=== PATIENT | male | born 1995 | race Caucasian/White ===

== ENCOUNTER 2017-01-21 01:01 | Inpatient (IN) | payer BC, OTHER ==
[~2017-01-21] VITALS: Ht 188 cm; Wt 65.8 kg
[2017-01-21] MEDS ORDERED: DICYCLOMINE HCL 20 MG TABLET PO PRN (01:15)
[2017-01-21] MEDS ORDERED: MIRALAX 17 GM POWD.PACK PO PRN (01:15)
[2017-01-21] MEDS ORDERED: MAG HYDROX/AL HYDROX/SIMETH 30 ML LIQUID UDC PO PRN (01:15)
[2017-01-21] MEDS ORDERED: ONDANSETRON 4 MG/2 ML VIAL IM PRN (01:15)
[2017-01-21] MEDS ORDERED: LOPERAMIDE HCL 2 MG CAPSULE PO PRN ×2 (01:15)
[2017-01-21] MEDS ORDERED: diphenhydrAMINE 50 MG CAPSULE PO PRN (01:15)
[2017-01-21] MEDS ORDERED: ACETAMINOPHEN 325 MG TABLET PO PRN (01:15)
[2017-01-21] MEDS ORDERED: ONDANSETRON ODT 4 MG TAB.RAPDIS SL PRN (01:15)
[2017-01-21] MEDS ORDERED: LORAZEPAM 2 MG/1 ML VIAL IM PRN (01:15)
[2017-01-21] MEDS ORDERED: LORAZEPAM 1 MG TABLET PO PRN ×2 (01:15)
--- NOTE | 2017-01-21 01:40 | NUR ---
Pre admission note Pt seen in intake office. Pt noted with mild intoxication upon admission but in stable condition. V/S WNL. Policies on medication disposal explained to and understood by patient. No s/s of distress noted at this time. Respirations even and unlabored. Will continue to monitor. Will admit to unit.
[2017-01-21 01:54] VITALS: BP 111/60
--- NOTE | 2017-01-21 01:55 | NUR ---
Admission note Pt is a 21 yo male, A+Ox4, presenting to [facility] for Benzo/Meth/Cocaine/Marijuana dependence. Pt has NKA, is on Full code status, and on Regular diet. Pt is 6'2" in height and 145 LBS in weight. Pt has medical HX of Anxiety, Insomnia, Neuropathy, Spinal cord injury, and intermittent incontinence. Pt has family HX of HTN for Father. Pt has no primary care provider. Pt has been taking Xanax PO for 1 year, has reached a level of 2mg/daily, and last dose was 2mg on 01-18-17. Pt has been using Methamphetamine IV for 5 months (3 weeks currently), has reached a level of 0.5gm/daily, and last dose was 0.1gm on 01-18-17. Pt has been using Cocaine/Crack Cocaine intranasal/inhalation for 5 years (3 weeks currently), has reached a level of "Very little"/daily, and last dose was "Very little" on 01-17-17. Pt has been smoking Marijuana for 15 years (3 weeks currently), has reached a level of 0.25gm/daily, and last dose was "1 hit" on 01-20-17. Pt has been taking home medications as follows: Vivitrol Q month- last taken around 12-22-16, Xanax 1mg BID-last taken on 01-18-17, gabapentin 800mg TID- last taken 01-18-17, Ibuprofen 800mg TID- last taken 01-18-17, Ditropan 5mg BID- Last taken 01-18-17, and Seroquel 50mg QHS- last taken 01-18-17. Pt has HX of previous detox/rehab for 7 days @ [facility] in [place], [place] in December 2016. This was the patients last time sober. Pt has been a cigarette smoker for 5 years and has reached a rate of 10/daily. Pt appears mildly intoxicated upon admission but in stable condition. V/S WNL. No s/s of distress noted at this time. Respirations even and unlabored. Will continue to monitor.
[2017-01-21] MEDS ORDERED: LORAZEPAM 1 MG TABLET PO ONE (02:15)
[2017-01-21] MEDS ORDERED: GABA800T2 PO (03:59)
[2017-01-21] MEDS ORDERED: ALPR1TAB7 PO (03:59)
[2017-01-21] MEDS ORDERED: IBUP-1957 PO (03:59)
[2017-01-21] MEDS ORDERED: NALT380S2 IM (03:59)
[2017-01-21] MEDS ORDERED: QUET50TA PO (03:59)
[2017-01-21] MEDS ORDERED: OXYB5TAB29 PO (03:59)
[2017-01-21 04:15] VITALS: BP 117/68
--- NOTE | 2017-01-21 07:00 | NUR ---
End of shift note Pt is a 21 yo male, A+Ox4, presenting to [facility] for Benzo/Meth/Cocaine/Marijuana dependence. Pt has NKA, is on Full code status, and on Regular diet. Pt is on Fall and Seizure precautions. Pt has HX of Anxiety, Insomnia, Neuropathy, Spinal cord injury, and intermittent incontinence. Pt is on 5 day Ativan taper, to start today. Pt slept for a total of 4 HRS. Last CIWA: 3 @0400. No s/s of distress noted at this time. Respirations even and unlabored. Will endorse to day shift nurse.
[2017-01-21 07:26] LABS: ALANINE AMINOTRANSFERASE 22 U/L (16-63); ALKALINE PHOSPHATASE 89 U/L (50-136); ASPARTATE AMINOTRANSFERASE 16 U/L (15-37); BILIRUBIN,TOTAL 0.3 mg/dL (0.2-1.0); CARBON DIOXIDE 29 mmol/L (21-32); CHLORIDE 104 mmol/L (98-107); GLUCOSE 90 mg/dL (74-106); MAGNESIUM 2.2 mg/dL (1.8-2.4); POTASSIUM 4.5 mmol/L (3.5-5.1); TOTAL PROTEIN, SERUM 7.8 g/dL (6.4-8.2); UREA NITROGEN, BLOOD 13 mg/dL (7-18)
[2017-01-21 07:36] LABS: ETHANOL < 3 MG/DL (0-0)
[2017-01-21 07:47] LABS: EOSINOPHILS # (AUTO) 0.5 K/uL (0.0-0.7); MEAN CORPUSCULAR HGB CONC 34 g/dL (32.5-36.3); MONOCYTES # (AUTO) 0.8 K/uL (2.0-10.0)
[2017-01-21 08:00] VITALS: BP 99/50
[2017-01-21 08:00] LABS: BASOPHILS # (AUTO) 0.1 K/uL (0.0-8.0); EOSINOPHILS % (AUTO) 7.1 % (0.0-7.0); HEMATOCRIT 41.1 % (36.7-47.1); HEMOGLOBIN 14.2 g/dL (12.5-16.3); LYMPHOCYTES # (AUTO) 2.4 K/uL (20.0-40.0); MEAN CORPUSCULAR VOLUME 87.2 fL (73.0-96.2); MONOCYTES % (AUTO) 10.4 % (0.0-11.0); NEUTROPHILS # (AUTO) 3.9 K/uL (1.8-8.9); NEUTROPHILS % (AUTO) 50.5 % (38.5-71.5); RED BLOOD CELL COUNT(AUTO) 4.71 MIL/uL (4.06-5.63); WHITE BLOOD COUNT (AUTO) 7.7 K/uL (3.6-10.2)
--- NOTE | 2017-01-21 08:00 | NUR ---
START OF SHIFT NOTE Pt is a 21 yo male, A+Ox4, presenting to [facility] for Benzo/Meth/Cocaine/Marijuana dependence. Pt has NKA, is on Full code status, and on Regular diet. Pt is on Fall and Seizure precautions. Pt has HX of Anxiety, Insomnia, Neuropathy, Spinal cord injury, and intermittent incontinence. Pt is on 5 day Ativan taper, to start today. Received report from night RN. Pt slept 4 hours. Last CIWA 3 at 0400. Urine sample for UDS not yet provided by patient. 0800 nursing rounds done. Pt sleeping but alert to verbal. Given urine sample container and requested sample. Bed in low position and locked, side rails up x 2 and padded, call ivory within reach. Will continue to monitor.
[2017-01-21 08:05] LABS: PLATELET COUNT (AUTO) 169 K/uL (152-348)
[2017-01-21] MEDS: THIAMINE HCL 100 MG TABLET PO SCH (09:25)
[2017-01-21] MEDS: MULTIVITAMINS,THERAPEUTIC TABLET PO SCH (09:25)
[2017-01-21] MEDS: GABAPENTIN 400 MG CAPSULE PO SCH ×3 (09:25→21:00)
[2017-01-21] MEDS: FOLIC ACID 1 MG TABLET PO SCH (09:25)
[2017-01-21] MEDS: LORAZEPAM 1 MG TABLET PO SCH ×4 (09:25→21:00)
[2017-01-21] MEDS: DULOXETINE 60 MG CAPSULE.DR PO SCH (09:33)
[2017-01-21] MEDS: OXYBUTYNIN CHLORIDE 5 MG TABLET PO SCH ×2 (09:33→21:00)
--- NOTE | 2017-01-21 09:33 | NUR ---
Pt reports pain in legs due to history spinal injury. Given Tylenol PRN. Will reassess.
--- NOTE | 2017-01-21 10:33 | NUR ---
PRN MEDICATION REASSESSMENT RN assessing for effectiveness for PRN tylenol at 0933, however, pt asleep at this time. Will continue to monitor for pain and medicate per orders.
[2017-01-21 11:31] LABS: *AMPHETAMINE, URINE NEGATIVE (NEGATIVE); *BARBITURATE, URINE NEGATIVE (NEGATIVE); *CANNABINOID, URINE NEGATIVE (NEGATIVE); *COCCAINE, URINE NEGATIVE (NEGATIVE); *OPIATE, URINE NEGATIVE (NEGATIVE); *PHENCYCLIDINE SCREEN,URINE NEGATIVE (NEGATIVE)
[2017-01-21 17:00] VITALS: BP 122/56
--- NOTE | 2017-01-21 17:00 | NUR ---
ATIVAN HELD 1700 dose Ativan held due to sedation, pt can open eyes to verbal, answers questions, but eyes close and falls back asleep if not stimulated. CIWA1. Dr. Yee notified dose held.
--- NOTE | 2017-01-21 19:43 | NUR ---
END OF SHIFT NOTE Pt is a 21 yo male, A+Ox4, presenting to [facility] for Benzo/Meth/Cocaine/Marijuana dependence. Pt has NKA, is on Full code status, and on Regular diet. Pt is on Fall and Seizure precautions. Pt has HX of Anxiety, Insomnia, Neuropathy, Spinal cord injury, and intermittent incontinence. Pt is on 5 day Ativan taper, to start today. Urine sample for UDS provided by patient. CIWA 8 at 0800. CIWA 4 at 1200. CIWA 1 at 1700. 1700 dose atvian held due to drowsiness/sedation. Dr. Yee notified. Pt able to respond to verbal but then quickly falls back asleep. Good appetite, ate 75 percent of breakfast, 100 percent of lunch and dinner. Fluid intake 1000 ml. Void x 4, no stool. Vital signs WNL. Report given to night RN. Bed in low position and locked, side rails up x 2 and padded, call ivory within reach. Will continue to monitor.
--- NOTE | 2017-01-21 19:44 | NUR ---
Start of shift note Received report from day shift nurse. Pt is a 21 yo male, A+Ox4, presenting to [facility] for Benzo/Meth/Cocaine/Marijuana dependence. Pt has NKA, is on Full code status, and on Regular diet. Pt is on Fall and Seizure precautions. Pt has HX of Anxiety, Insomnia, Neuropathy, Spinal cord injury, and intermittent incontinence. Pt is on 5 day Ativan taper, tolerated well. No s/s of distress noted at this time. Respirations even and unlabored. Will continue to monitor.
[2017-01-21 20:11] VITALS: BP 103/55
[2017-01-21] MEDS: QUETIAPINE FUMARATE 25 MG TABLET PO SCH (21:00)
[2017-01-22 00:15] VITALS: BP 119/69
[2017-01-22 04:29] VITALS: BP 117/68
--- NOTE | 2017-01-22 06:52 | NUR ---
End of shift note Pt is a 21 yo male, A+Ox4, presenting to [facility] for Benzo/Meth/Cocaine/Marijuana dependence. Pt has NKA, is on Full code status, and on Regular diet. Pt is on Fall and Seizure precautions. Pt has HX of Anxiety, Insomnia, Neuropathy, Spinal cord injury, and intermittent incontinence. Pt is on 5 day Ativan taper, tolerated well. Pt slept for a total of 11 HRS. Last CIWA: 1 @0400. No s/s of distress noted at this time. Respirations even and unlabored. Will endorse to day shift nurse.
[2017-01-22 08:00] VITALS: BP 118/79
--- NOTE | 2017-01-22 08:00 | NUR ---
START OF SHIFT NOTE Pt is a 21 yo male, A+Ox4, presenting to [facility] for Benzo/Meth/Cocaine/Marijuana dependence. Pt has NKA, is on Full code status, and on Regular diet. Pt is on Fall and Seizure precautions. Pt has HX of Anxiety, Insomnia, Neuropathy, Spinal cord injury, and intermittent incontinence. Received report from night RN. Pt slept 11 hours. Last CIWA 1 at 0400. 0800 nursing rounds done. Pt alert and oriented. No requests at this time. Bed in low position and locked, side rails up x 2 and padded, call ivory within reach. Will continue to monitor.
[2017-01-22 08:06] LABS: HEPATITIS B SURFACE AG Negative (Negative)
[2017-01-22] MEDS ORDERED: TUBERCULIN,PURIF.PROT.DERIV. 5 TU/0.1 ML TEST ID ONE (09:00)
[2017-01-22] MEDS ORDERED: LORAZEPAM 1 MG TABLET PO SCH (09:00)
[2017-01-22] MEDS: FOLIC ACID 1 MG TABLET PO SCH (09:52)
[2017-01-22] MEDS: THIAMINE HCL 100 MG TABLET PO SCH (09:52)
[2017-01-22] MEDS: DULOXETINE 60 MG CAPSULE.DR PO SCH (09:52)
[2017-01-22] MEDS: MULTIVITAMINS,THERAPEUTIC TABLET PO SCH (09:53)
[2017-01-22] MEDS: GABAPENTIN 400 MG CAPSULE PO SCH ×3 (09:53→22:01)
[2017-01-22] MEDS: OXYBUTYNIN CHLORIDE 5 MG TABLET PO SCH ×2 (10:00→22:01)
[2017-01-22] MEDS: CLONIDINE HCL 0.1 MG TABLET PO PRN (11:59)
[2017-01-22] MEDS: IBUPROFEN 800 MG TABLET PO PRN (11:59)
[2017-01-22 12:00] VITALS: BP 125/73
--- NOTE | 2017-01-22 12:00 | NUR ---
PRN MEDICATION ADMINISTRATION Pt complaint of nausea, stomach cramps, anxiety, back pain. Given PRN Zofran SL, Bentyl, Clonidine, Motrin. Will reassess.
--- NOTE | 2017-01-22 12:30 | NUR ---
PRN MEDICATION REASSESSMENT Pt reports no further nausea after Zofran SL.
--- NOTE | 2017-01-22 13:00 | NUR ---
PRN MEDICATION REASSESSMENT Reassessment after Bentyl, clonidine and motrin given at 1159. Pt reports resolution of stomach cramps, anxiety is decreased, denies pain at this time.
[2017-01-22] MEDS: LORAZEPAM 1 MG TABLET PO SCH ×2 (15:52→22:00)
[2017-01-22 17:00] VITALS: BP 104/56
--- NOTE | 2017-01-22 19:00 | NUR ---
END OF SHIFT NOTE Pt is a 21 yo male, A+Ox4, presenting to [facility] for Benzo/Meth/Cocaine/Marijuana dependence. Pt has NKA, is on Full code status, and on Regular diet. Pt is on Fall and Seizure precautions. Pt has HX of Anxiety, Insomnia, Neuropathy, Spinal cord injury, and intermittent incontinence. At 1200 received PRN Zofran SL, Bentyl, Clonidine, Motrin for mild nausea, stomach cramps, anxiety, body aches. At 1300 symptoms resolved/decreased. Eating 50-100 percent of meals. Intake 1675 ml, void x 3. Report given to night RN. Bed in low position and locked, side rails up x 2 and padded, call ivory within reach.
[2017-01-22 20:00] VITALS: BP 95/69
--- NOTE | 2017-01-22 20:00 | NUR ---
START OF SHIFT NOTE RECEIVED REPORT FROM DAY SHIFT NURSE. PATIENT IS A 21 YEAR OLD MALE ADMITTED FOR BENZO DEPENDENCE. PATIENT IS A 21 YEAR OLD MALE ADMITTED FOR BENZO/METH/COCAINE AND MARIJUANA DEPENDENCE. PATIENT IS ON 5 DAY ATIVAN TAPER. PATIENT REPORTS PMH OF ANXIETY, INSOMNIA, NEUROPATHY, SPINAL CORD INJURY (2016), BLADDER CONTROL ISSUES AND INTERMITTENT INCONTINENCE. PATIENT IS ON FALL PRECAUTION.PATIENT WAS GIVEN PRN ZOFRAN, BENTYL AND MOTRIN. LAST CIWA 4. RECEIVED PATIENT IN HIS ROOM, RESTING. PATIENT REPORTS ANXIETY, NO N/V, SWEATING, GENERALIZED BODY ACHES 4/10, NOTED IRRITABLE AND AGITATED. PATIENT STATES HE WANTS TO GO BACK TO SLEEP. ON FALL PRECAUTION. SAFETY MEASURES IN PLACE. CALL LIGHT IN REACH. WILL CONTINUE TO MONITOR.
[2017-01-22] MEDS: QUETIAPINE FUMARATE 25 MG TABLET PO SCH (22:01)
[2017-01-22] MEDS: TAMSULOSIN HCL 0.4 MG CAP.SR.24H PO SCH (22:01)
--- NOTE | 2017-01-23 | NUR ---
CIWA DEFERRED PATIENT SLEEPING. CIWA DEFERRED. VS REFUSED. RESPIRATION EVEN AND UNLABORED. SAFETY MEASURES IN PLACE. CALL LIGHT IN REACH. WILL CONTINUE TO MONITOR
--- NOTE | 2017-01-23 04:00 | NUR ---
CIWA DEFERRED PATIENT SLEEPING. CIWA DEFERRED. VS REFUSED. RESPIRATION EVEN AND UNLABORED. SAFETY MEASURES IN PLACE. CALL LIGHT IN REACH. WILL CONTINUE TO MONITOR
--- NOTE | 2017-01-23 07:19 | NUR ---
END OF SHIFT NOTE PATIENT IS A 21 YEAR OLD MALE ADMITTED FOR BENZO/METH/COCAINE AND MARIJUANA DEPENDENCE. PATIENT IS ON 5 DAY ATIVAN TAPER, TOLERATED WELL AND NO ADVERSE REACTION. PATIENT IN HIS ROOM MOST OF THE SHIFT. PATIENT DID NOT REQUIRE ANY PRN MEDICATION. PATIENT REPORTED ANXIETY, NO N/V, SWEATING, GENERALIZED BODY ACHES 4/10, NOTED IRRITABLE AND AGITATED BEGINNING OF THE SHIFT. PATIENT REFUSED TO HAVE PAIN MEDICATION FOR PAIN /10. RELAXATION TECHNIQUE PROVIDED. ON FALL PRECAUTION. SAFETY MEASURES IN PLACE. CALL LIGHT IN REACH. WILL CONTINUE TO MONITOR. SLEPT 11 HOURS. NO FLUID INTAKE . VOIDED X 0. NO BM. LAST CIWA 7.
[2017-01-23 08:00] VITALS: BP_SYST 108; BP_SYST 122; BP_DIAS 40; BP_DIAS 67
--- NOTE | 2017-01-23 08:00 | NUR ---
START OF SHIFT NOTE Pt is a 21 yo male, A+Ox4, presenting to [facility] for Benzo/Meth/Cocaine/Marijuana dependence. Pt has NKA, is on Full code status, and on Regular diet. Pt is on Fall and Seizure precautions. Pt has HX of Anxiety, Insomnia, Neuropathy, Spinal cord injury, and intermittent incontinence. Received report from night RN. Pt slept 11 hours. Last CIWA 7 at 8 pm. No PRN medications given. 0800 nursing rounds done. Pt alert and oriented. No requests at this time. Bed in low position and locked, side rails up x 2 and padded, call ivory within reach. Will continue to monitor.
[2017-01-23] MEDS: FOLIC ACID 1 MG TABLET PO SCH (09:02)
[2017-01-23] MEDS: GABAPENTIN 400 MG CAPSULE PO SCH ×3 (09:02→21:53)
[2017-01-23] MEDS: MULTIVITAMINS,THERAPEUTIC TABLET PO SCH (09:02)
[2017-01-23] MEDS: THIAMINE HCL 100 MG TABLET PO SCH (09:02)
[2017-01-23] MEDS: DULOXETINE 60 MG CAPSULE.DR PO SCH (09:02)
[2017-01-23] MEDS: LORAZEPAM 1 MG TABLET PO SCH ×4 (09:05→21:52)
[2017-01-23] MEDS: OXYBUTYNIN CHLORIDE 5 MG TABLET PO SCH ×2 (09:08→21:53)
[2017-01-23] MEDS: CLONIDINE HCL 0.1 MG TABLET PO PRN (09:12)
--- NOTE | 2017-01-23 09:12 | NUR ---
PRN MEDICATION ADMINISTRATION Pt reporting anxiety. Given Clonidine PRN. Will reassess.
--- NOTE | 2017-01-23 10:12 | NUR ---
PRN MEDICATION REASSESSMENT Pt reports decrease in anxiety after receiving clonidine.
[2017-01-23] MEDS ORDERED: LORAZEPAM 1 MG TABLET PO ONE (11:30)
[2017-01-23 12:00] VITALS: BP 108/40
[2017-01-23 17:00] VITALS: BP 111/60
--- NOTE | 2017-01-23 19:09 | NUR ---
END OF SHIFT NOTE Pt is a 21 yo male, A+Ox4, presenting to [facility] for Benzo/Meth/Cocaine/Marijuana dependence. Pt has NKA, is on Full code status, and on Regular diet. Pt is on Fall and Seizure precautions. Pt has HX of Anxiety, Insomnia, Neuropathy, Spinal cord injury, and intermittent incontinence. Pt received clonidine for anxiety at 0912. At 1012 pt reports good decrease in anxiety effect. Tolerating Ativan taper with CIWA scores of 7 at 0800, 6 at 1200, and 7 at 1700. Consuming 100 percent of meals. Fluid intake 2513 ml. Void x 4. Stool x 0. BP 108/[address] Yee notified. No interventions ordered. notified Pt reports when he has a low blood pressure due to his spinal injury he increases his fluid and salt intake. stated that would be OK. Pt increased fluid intake and salt intake Next BP 111/60 at 1700. Report given to night RN. Bed in low position and locked, side rails up x 2 and padded, call ivory within reach.
[2017-01-23 20:00] VITALS: BP 107/59
--- NOTE | 2017-01-23 20:00 | NUR ---
CIWA deferred CIWA deferred due to the px is sleeping, to assess if the px is awake per doctor's order. Respirations are even and unlabored. We'll continue to monitor.
[2017-01-23] MEDS: TAMSULOSIN HCL 0.4 MG CAP.SR.24H PO SCH (21:53)
[2017-01-23] MEDS: QUETIAPINE FUMARATE 25 MG TABLET PO SCH (21:53)
--- NOTE | 2017-01-23 21:53 | NUR ---
PRN Miralax Px woke up around 2129, assessment done. CIWA 7. Px appears very withdrawn, depressed, and anxious. Px requested for medicine for his constipation for 3 days as verbalized. Miralax 17 G powder, mixed to cup of water given PO as PRN med. We'll continue to monitor.
--- NOTE | 2017-01-24 | NUR ---
VS Refused Px refused VS taking even he is awake. Respirations are even and unlabored. CIWA 7. We'll continue to monitor.
--- NOTE | 2017-01-24 01:02 | NUR ---
PRN MOTRIN 800 MG REASSESSMENT Pt reports improvement in pain 4/10 in extremities. Safety measures in place. Call light within reach. Will continue to monitor.
--- NOTE | 2017-01-24 04:00 | NUR ---
VS Refused Px refused VS taking even he is awake. Respirations are even and unlabored. CIWA 7. We'll continue to monitor.
--- NOTE | 2017-01-24 07:10 | NUR ---
Start of Shift Notes Received a 21 y/o male, admitted 01/21/2017 for Benzo/Meth/Cocaine/Marijuana dependence. A&Ox4. Px has NKA, is on Full code status, and on Regular diet. Px is on Fall and Seizure precautions. Px has HX of Anxiety, Insomnia, Neuropathy, Spinal cord injury, and intermittent incontinence. During the rounds at 2000, px is asleep, VS is WNL. Respirations are and unlabored. Bed in low position and locked, side rails up x 2 and padded, call light within reach. We'll continue to monitor.
--- NOTE | 2017-01-24 07:30 | NUR ---
START OF SHIFT Pt is a 21 y/o male admitted on 01/21/17 for benzo, meth, and cocaine dependence. Pt is full code, regular diet, NKA, and fall/seizure precautions. No reported seizure hx. Pt reports PMH of anxiety, insomnia, neuropathy, spinal cord injury, bladder incontinence. Pt started a 5 day Ativan taper on 01/21/17, tolerating well. 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 Pt slept 9.5 hours. Last CIWA 7 during film processing shift supervisor. Upon assessment pt presents with anxiety, restlessness, and sweats. Respirations 16, even and unlabored. Denies N/V/D. Denies chest pain or SOB. Medications due. Safety measures in place. Call light within reach. Will continue to monitor.
[2017-01-24 08:00] VITALS: BP 128/53
[2017-01-24] MEDS: THIAMINE HCL 100 MG TABLET PO SCH (09:26)
[2017-01-24] MEDS: FOLIC ACID 1 MG TABLET PO SCH (09:26)
[2017-01-24] MEDS: OXYBUTYNIN CHLORIDE 5 MG TABLET PO SCH ×2 (09:26→21:00)
[2017-01-24] MEDS: MULTIVITAMINS,THERAPEUTIC TABLET PO SCH (09:27)
[2017-01-24] MEDS: DULOXETINE 60 MG CAPSULE.DR PO SCH (09:27)
[2017-01-24] MEDS: LORAZEPAM 1 MG TABLET PO SCH ×3 (09:27→21:00)
[2017-01-24] MEDS: GABAPENTIN 400 MG CAPSULE PO SCH ×2 (09:27→15:19)
[2017-01-24 12:00] VITALS: BP 123/56
[2017-01-24] MEDS: IBUPROFEN 800 MG TABLET PO PRN (12:02)
--- NOTE | 2017-01-24 12:02 | NUR ---
PRN MOTRIN ADMINISTRATION Pt reports persistent chronic nerve pain in bilateral feet and left hand, describes pain as "burning" 10/10. Pt presents with facial grimacing. Safety measures in place. Call light within reach. Will continue to monitor.
--- NOTE | 2017-01-24 13:45 | NUR ---
Activity Group Note: Client attended activity group. When prompted, client stated, "I will come paint in just a little bit," but did not participate in "painting" activity. Client appeared to have a depressed mood with flat affect. Client began watching TV. Client was educated on activity group protocol, and client chose music to listen to on the TV. Client left 45 minutes early. metal control worker will continue to encourage participation in activity group in the future.
[2017-01-24] MEDS ORDERED: METHYL SALICYLATE/MENTHOL CREAM 28 GM TUBE TOP PRN (15:30)
[2017-01-24] MEDS ORDERED: BACLOFEN 20 MG TABLET PO PRN (15:30)
[2017-01-24] MEDS ORDERED: KETOROLAC TROMETHAMINE 30 MG INJ IM PRN (15:30)
[2017-01-24 16:00] VITALS: BP 127/69
--- NOTE | 2017-01-24 16:15 | NUR ---
MD COMMUNICATION Patient stated to primary nurse that "I am getting worried, on the way to the airplane I filled a condom up with pills and put it up my butt, and it hasn't come out yet." Charge nurse notified MD of patients comment, per MD patient to be on a 1:1 for safety. 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
--- NOTE | 2017-01-24 16:25 | NUR ---
BM EPISODE Patient had a normal size bowel movement, BM checked by charge nurse and no condom or pills were found. MD notified of bm episode and verbal orders to keep patient on 1:1 for safety. Pt remains on a 1:1 and to be monitored closely.
--- NOTE | 2017-01-24 19:12 | NUR ---
END OF SHIFT Pt is a 21 y/o male admitted on 01/21/17 for benzo, meth, and cocaine dependence. Pt is full code, regular diet, NKA, and fall/seizure precautions. No reported seizure hx. Pt reports PMH of anxiety, insomnia, neuropathy, spinal cord injury, bladder incontinence. Pt started a 5 day Ativan taper on 01/21/17, tolerating well. Pt presented with anxiety, restlessness, and sweats. Pt also complained of chronic nerve pain in extremities throughout shift 10/10 r/t spinal cord injury. Scheduled medications and PRN Motrin 800 mg administered, effective in S/S of withdrawal AEB CIWA 5 lowered to CIWA 3 during shift. Pt ate all his meals. Pt participated in some groups/activities. Intake 2400 mL, void x 5, stool x 2. Safety measures in place. Call light within reach. Pts needs have been met. Endorsed to shift lab technician nurse.
[2017-01-24 20:12] VITALS: BP 122/71
[2017-01-24] MEDS: GABAPENTIN 300 MG CAPSULE PO SCH (21:00)
[2017-01-24] MEDS: QUETIAPINE FUMARATE 25 MG TABLET PO SCH (21:00)
[2017-01-24] MEDS: TAMSULOSIN HCL 0.4 MG CAP.SR.24H PO SCH (21:00)
[2017-01-25 00:27] VITALS: BP 126/75
[2017-01-25 04:06] VITALS: BP 128/78
--- NOTE | 2017-01-25 07:00 | NUR ---
End of shift note Pt is a 21 yo male, A+Ox4, presenting to [facility] for Benzo/Meth/Cocaine/Marijuana dependence. Pt has NKA, is on Full code status, and on Regular diet. Pt is on Fall and Seizure precautions. Pt has HX of Anxiety, Insomnia, Neuropathy, Spinal cord injury, and intermittent incontinence. Pt is on 5 day Ativan taper, tolerated well. Pt slept for a total of 9 HRS. Last CIWA: 1 @0400. No s/s of distress noted at this time. Respirations even and unlabored. Will endorse to day shift nurse.
[2017-01-25 08:00] VITALS: BP 128/82
--- NOTE | 2017-01-25 08:05 | NUR ---
START OF SHIFT: RECEIVED PT A/O X 4. HE PRESENTS WITH IRRITABLE MOOD AND CONGRUENT AFFECT. HE HAS A SITTER AT BEDSIDE. HE STATES HE DOES NOT WANT OR NEED A ASSISTANT CONTROLLER AND WANTS TO BE TAKEN OFF THE 1:1 SITTER. HE REPORTS PAIN 7/10 TO HANDS AND FEET FOR NEUROPATHY. PT IS ODOROUS AND INCONTINENT OF URINE WHICH HAS A FOUL ODOR. WILL ASK MD FOR ORDER FOR UA TO R/O UTI. WILL ADMINISTER TORADOL IM FOR PAIN. ENCOURAGED INCREASED FLUIDS. ENCOURAGED GROUP ATTENDANCE. WILL CONTINUE TO MONITOR AND OFFER SUPPORT.
--- NOTE | 2017-01-25 08:30 | NUR ---
ESTRADA ORDER Dr. Yee to order ESTRADA to rule out foreign object, patient was provided explanation and verbalizes understanding. Primary nurse to follow up with results.
[2017-01-25] MEDS ORDERED: LORAZEPAM 1 MG TABLET PO SCH (09:00)
[2017-01-25] MEDS: DULOXETINE 60 MG CAPSULE.DR PO SCH (09:12)
[2017-01-25] MEDS: THIAMINE HCL 100 MG TABLET PO SCH (09:12)
[2017-01-25] MEDS: GABAPENTIN 300 MG CAPSULE PO SCH (09:12)
[2017-01-25] MEDS: MULTIVITAMINS,THERAPEUTIC TABLET PO SCH (09:12)
[2017-01-25] MEDS: FOLIC ACID 1 MG TABLET PO SCH (09:12)
[2017-01-25] MEDS: OXYBUTYNIN CHLORIDE 5 MG TABLET PO SCH (09:13)
--- NOTE | 2017-01-25 09:50 | NUR ---
PRN TORADOL IM GIVEN FOR PAIN TO HANDS AND FEET 7/10 ON PAIN SCALE. MANUALLY CLICKED ON E MAR ADMINISTRATION DID NOT SAVE ON COMPUTER AFTER SCANNING.WILL MONITOR EFFECTIVENESS OF PRN.
--- NOTE | 2017-01-25 10:50 | NUR ---
PT STATES TORADOL WAS EFFECTIVE. PAIN 3/10.
--- NOTE | 2017-01-25 11:05 | NUR ---
DISCHARGE AMA: PT DECIDED TO LEAVE AMA DESPITE MULTIDISCIPLINARY TEAM INTERVENING PT WAS NOT WILLING TO RECONSIDER HIS DECISION. HE DENIES S/I AND H/I . LIST OF RESOURCES GIVEN. EDUCATED PT ON POTENTIAL CONSEQUENCES OF LEAVING AMA. PT ESCORTED BY CHIEF ENGINEER PRODUCTION OUT OF BUILDING AT 11:03 AM.
[2017-01-26] MEDS ORDERED: LORAZEPAM 1 MG TABLET PO SCH (09:00)
== END 2017-01-25 11:03 | disposition left against medical advice (07) | DRG 894 ==
LOC: SRC 01:01
PROVIDERS: ADMIT Internal Medicine; ATTEND Internal Medicine
DX: F10.230 Alcohol dependence with withdrawal, uncomplicated (principal); F33.2 Major depressive disorder, recurrent severe without psychotic features; F13.230 Sedative, hypnotic or anxiolytic dependence with withdrawal, uncomplicated; N31.9 Neuromuscular dysfunction of bladder, unspecified; Y90.9 Presence of alcohol in blood, level not specified; F17.210 Nicotine dependence, cigarettes, uncomplicated; M79.2 Neuralgia and neuritis, unspecified; T14.8XXS Other injury of unspecified body region, sequela; X58.XXXS Exposure to other specified factors, sequela; Z81.8 Family history of other mental and behavioral disorders; Z81.1 Family history of alcohol abuse and dependence; F41.9 Anxiety disorder, unspecified; Z79.899 Other long term (current) drug therapy; Z91.89 Other specified personal risk factors, not elsewhere classified; F11.21 Opioid dependence, in remission; M50.90 Cervical disc disorder, unspecified, unspecified cervical region; R32 Unspecified urinary incontinence; R33.9 Retention of urine, unspecified
CPT/HCPCS: 36415; 70030-TC; 74000; 80307; 80346; 83735; 85025; 86592; 86705; 86803; 87340; 87806; G0480; J1885; Q0162